=== PATIENT | female | born 1995 | race African-American/Black ===

== ENCOUNTER 2017-11-08 10:47 | Emergency (ER) | payer MEDICAID ==
[~2017-11-08] VITALS: Ht 157.5 cm; Wt 81.6 kg
[2017-11-08 10:54] VITALS: BP 139/80; Ht 157.5 cm; Wt 81.6 kg
== END 2017-11-08 13:30 | disposition home or self-care (01) ==
LOC: ED 10:47
DX: J45.901 Unspecified asthma with (acute) exacerbation (principal)
CPT/HCPCS: J7512; J7613; J7644

== ENCOUNTER 2018-02-06 09:06 | Emergency (ER) | payer MEDICAID ==
[~2018-02-06] VITALS: Ht 157.5 cm; Wt 81.6 kg
[2018-02-06 09:12] VITALS: Ht 157.5 cm; Wt 81.6 kg
[2018-02-06 10:13] VITALS: BP 158/84
== END 2018-02-06 10:13 | disposition home or self-care (01) ==
LOC: ED 09:06
DX: L05.91 Pilonidal cyst without abscess (principal); J45.909 Unspecified asthma, uncomplicated

== ENCOUNTER 2018-02-06 13:37 | Emergency (ER) | payer MEDICAID ==
[~2018-02-06] VITALS: Ht 167.6 cm; Wt 81.6 kg
[2018-02-06 13:40] VITALS: Ht 167.6 cm; Wt 81.6 kg
[2018-02-06 15:39] VITALS: BP 149/92
== END 2018-02-06 15:39 | disposition home or self-care (01) ==
LOC: ED 13:37
DX: L05.91 Pilonidal cyst without abscess (principal); J45.909 Unspecified asthma, uncomplicated
CPT/HCPCS: J2001; J2270; Q0162

== ENCOUNTER 2018-02-10 06:01 | Emergency (ER) | payer MEDICAID ==
[~2018-02-10] VITALS: Ht 157.5 cm; Wt 103.9 kg
[2018-02-10 07:15] VITALS: BP 131/57
== END 2018-02-10 07:15 | disposition home or self-care (01) ==
LOC: ED 06:01
DX: Z48.01 Encounter for change or removal of surgical wound dressing (principal); J45.909 Unspecified asthma, uncomplicated
CPT/HCPCS: J2001

== ENCOUNTER 2019-01-31 20:23 | Emergency (ER) | payer MEDICAID ==
[~2019-01-31] VITALS: Ht 160 cm; Wt 95.3 kg
[2019-01-31 20:24] VITALS: Ht 160 cm; Wt 95.3 kg
[2019-01-31 22:12] VITALS: BP 143/90
== END 2019-01-31 22:12 | disposition home or self-care (01) ==
LOC: ED 20:23
DX: J45.909 Unspecified asthma, uncomplicated (principal)
CPT/HCPCS: J7512; J7613; J7620

== ENCOUNTER 2019-07-06 01:35 | Emergency (ER) | payer MEDICAID ==
[~2019-07-06] VITALS: Ht 157.5 cm; Wt 85.3 kg
[2019-07-06 01:39] VITALS: Ht 157.5 cm; Wt 85.3 kg
[2019-07-06 02:17] LABS: BASOPHIL % 0.9 % (0-2); PLATELET COUNT 353 x10^3mcL (130-400)
[2019-07-06 02:24] LABS: CALCIUM 8.5 mg/dL (8.5-10.1); CARBON DIOXIDE 28.2 mmol/L (21-32); CHLORIDE SERUM 107 mmol/L (98-107); CREATININE SERUM 0.7 mg/dL (0.6-1.0); GFR1 > 60 mL/min; GLUCOSE SERUM 109 mg/dL (74-106); POTASSIUM SERUM 3.5 mmol/L (3.5-5.1); SODIUM SERUM 143 mmol/L (136-145)
[2019-07-06 02:30] LABS: ALBUMIN 3.6 g/dL (3.4-5.0); ALKALINE PHOSPHATASE 123 U/L (46-116); ALT/SGPT 24 U/L (14-59); AST/SGOT 15 U/L (15-37); BILIRUBIN TOTAL 0.21 mg/dL (0.20-1.00); TOTAL PROTEIN, SERUM 7.4 g/dL (6.4-8.2)
[2019-07-06 04:21] VITALS: BP 135/82
== END 2019-07-06 04:27 | disposition home or self-care (01) ==
LOC: ED 01:35
PROVIDERS: Emergency Medicine
DX: J45.901 Unspecified asthma with (acute) exacerbation (principal)
CPT/HCPCS: J2930; J7613; J7644; Q0092

== ENCOUNTER 2019-09-18 13:50 | Emergency (ER) | payer MEDICAID ==
[~2019-09-18] VITALS: Ht 157.5 cm; Wt 97.6 kg
[2019-09-18 14:12] VITALS: Ht 157.5 cm; Wt 97.6 kg
[2019-09-18 16:18] VITALS: BP 138/76
== END 2019-09-18 16:18 | disposition home or self-care (01) ==
LOC: ED 13:50
DX: J45.901 Unspecified asthma with (acute) exacerbation (principal)
CPT/HCPCS: 87804; J7512; J7613; J7620

== ENCOUNTER 2019-10-25 11:54 | Emergency (ER) | payer MEDICAID ==
[~2019-10-25] VITALS: Ht 162.6 cm; Wt 102.1 kg
[2019-10-25 12:03] VITALS: Ht 162.6 cm; Wt 102.1 kg
[2019-10-25 14:20] VITALS: BP 151/75
== END 2019-10-25 14:20 | disposition home or self-care (01) ==
LOC: ED 11:54
DX: J45.901 Unspecified asthma with (acute) exacerbation (principal)
CPT/HCPCS: J7512; J7613; J7644

== ENCOUNTER 2020-02-08 20:51 | Emergency (ER) | payer MEDICAID, SELFPAY ==
[~2020-02-08] VITALS: Ht 157.5 cm; Wt 103.9 kg
[2020-02-08 20:58] VITALS: Ht 157.5 cm; Wt 103.9 kg
[2020-02-08 23:24] VITALS: BP 130/75
== END 2020-02-08 23:24 | disposition home or self-care (01) ==
LOC: ED 20:51
DX: J45.901 Unspecified asthma with (acute) exacerbation (principal); E66.9 Obesity, unspecified; Z68.41 Body mass index [BMI] 40.0-44.9, adult
CPT/HCPCS: 87804; J2930; J7613; J7644; Q0092; U0003-CS